=== PATIENT | male | born 1955 | race African-American/Black ===

== ENCOUNTER 2023-01-26 16:20 | Emergency (ER) | payer OTHER ==
[~2023-01-26] VITALS: Ht 177.8 cm; Wt 88.6 kg
[2023-01-26 18:40] VITALS: BP 187/85; PULSE 101; RESP 16; O2SAT 96
[2023-01-26] MEDS ORDERED: IBUPROFEN 600 MG TAB PO ONE (19:15)
[2023-01-26 19:16] VITALS: TEMP 98.1
[2023-01-26] MEDS ORDERED: IBUP1TAB5 PO (20:21)
[2023-01-26] MEDS ORDERED: LIDO5PAD8 EX (20:21)
== END 2023-01-26 20:53 | disposition home or self-care (01) ==
LOC: EDBD 16:20 → ER 16:20
DX: S39.012A Strain of muscle, fascia and tendon of lower back, initial encounter (principal); S20.212A Contusion of left front wall of thorax, initial encounter; I10 Essential (primary) hypertension; E78.5 Hyperlipidemia, unspecified; M79.605 Pain in left leg; Z79.1 Long term (current) use of non-steroidal anti-inflammatories (NSAID); Z88.0 Allergy status to penicillin; V03.99XA Pedestrian with other conveyance injured in collision with car, pick-up truck or van, unspecified whether traffic or nontraffic accident, initial encounter; Y93.89 Activity, other specified; Y92.89 Other specified places as the place of occurrence of the external cause; Y99.8 Other external cause status
CPT/HCPCS: 71101; 72100; 73590